=== PATIENT | male | born 1960 | race Two or more races ===

== ENCOUNTER 2019-09-23 06:02 | Day surgery (SDC) | payer BC ==
[2019-09-23] MEDS ORDERED: ePHEDrine SULFATE 50 MG/1 ML IVP ONE (08:48)
[2019-09-23] MEDS ORDERED: PROPOFOL 200 MG/20 ML VIAL IV ONE (08:48)
[2019-09-23] MEDS ORDERED: SEVOFLURANE 250 ML LIQUID IH ONE (08:48)
[2019-09-23] MEDS ORDERED: ROCURONIUM BROMIDE 10 MG/ML 5ML VIAL ONE (08:48)
[2019-09-23] MEDS ORDERED: DEXAMETHASONE SODIUM PHOSPHATE 10 MG/ML VIAL ONE (08:48)
[2019-09-23] MEDS ORDERED: LACTATED RINGERS 1,000 ML IV.SOLN IV ONE ×2 (08:48)
[2019-09-23] MEDS ORDERED: SUGAMMADEX SODIUM 200 MG/2 ML VIAL IV ONE (08:48)
[2019-09-23] MEDS ORDERED: THROMBIN (RECOMBINANT) 20,000 UNIT VIAL TP ONE (08:48)
[2019-09-23] MEDS ORDERED: ONDANSETRON HCL/PF 4 MG/ 2ML VIAL ONE (08:48)
[2019-09-23] MEDS ORDERED: GELATIN SPONGE,ABSORB/PORCINE (SIZE 100) 1 EACH SPONGE TP ONE (08:48)
[2019-09-23] MEDS ORDERED: BACITRACIN 50,000 UNIT VIAL IR ONE (08:48)
[2019-09-23] MEDS ORDERED: MIDAZOLAM HCL 2 MG/2 ML VIAL ONE (08:48)
[2019-09-23] MEDS ORDERED: ceFAZolin SODIUM 1 GM VIAL ONE (08:48)
[2019-09-23] MEDS ORDERED: LIDOCAINE HCL 2% PF 100MG/5ML VIAL IJ ONE (08:48)
[2019-09-23] MEDS ORDERED: HYDROmorphone HCL/PF 1 MG/ML VIAL ONE (09:48)
[2019-09-23] MEDS ORDERED: fentaNYL CITRATE/PF 100 MCG/2 ML INJ. ONE (09:53)
[2019-09-24 08:46] VITALS: BP 117/76
--- NOTE | 2019-11-14 10:52 | Operative Note ---
PROCEDURE DATE: 09/23/2019 PREOPERATIVE DIAGNOSIS: 1. Herniated nucleus pulposus with central and bilateral foraminal stenosis, C5- 6. 2. Herniated nucleus pulposus with central and bilateral foraminal stenosis, C6- 7. POSTOPERATIVE DIAGNOSIS: 1. Herniated nucleus pulposus with central and bilateral foraminal stenosis, C5- 6. 2. Herniated nucleus pulposus with central and bilateral foraminal stenosis, C6- 7. PROCEDURES PERFORMED: 1. Radical discectomy anteriorly, C5-6. 2. Radical discectomy anteriorly, C6-7. 3. Partial vertebrectomy for decompression of central and bilateral foraminal stenosis, posterior inferior aspect of the C5 vertebral body. 4. Partial vertebrectomy for decompression of central and bilateral foraminal stenosis, posterior superior aspect of the C6 vertebral body. 5. Partial vertebrectomy for decompression of central and bilateral foraminal stenosis, posterior inferior aspect of the C6 vertebral body. 6. Partial vertebrectomy for decompression of central and bilateral foraminal stenosis, posterior superior aspect of the C7 vertebral body. 7. Placement of cervical total disc replacement arthroplasty at the C5-6 level. 8. Placement of cervical total disc replacement arthroplasty at the C6-7 level. 9. Intraoperative fluoroscopy and interpretation for needle placement. SURGEON: Hemant Zepeda Jr., M.D. HOUSE MOVER HELPER: SARA Hi BC ANESTHESIA: General. COMPLICATIONS: None. CONDITION TO THE RECOVERY ROOM: Good. OPERATIVE FINDINGS: This patient had a large herniated nucleus pulposus and osteophyte formation resulting in central and bilateral foraminal stenosis from which he was symptomatic and unresponsive to conservative management at C5-6 and C6-7. The patient was counseled regarding options and elected to proceed with cervical total disc replacement arthroplasty at C5-6 and C6-7, which was carried out today with good alignment and positioning of the total disc replacements. Central and bilateral foraminal stenosis was relieved by judicious partial vertebrectomy at each level until nerve hook documented relief of the central and bilateral foraminal stenosis. DESCRIPTION OF PROCEDURE: The patient was taken to the operating room and intravenous antibiotics administered. The neck was shaved to the degree necessary. Steri-Drapes were applied at the intended surgical site edges. The surgical site was then scrubbed and prepped to sterility. Sterile draping then occurred. X-ray was brought into position and a radiographic marker was placed identifying the extended center line of the disc for intended surgical care. Beginning at the midline, a transverse surgical incision was made extending to the left approximately 2 cm. Once the epidermis was penetrated, the dermis was incised with electrocautery. Dissection through the subcutaneous tissue with Metzenbaum scissors and digitally was performed down until the interval between the trachea and the carotid triangle and the esophagus was clearly established down to the Longus colli muscles on the left side of the anterior cervical spine at the C5-6 level. Gentle retraction of the trachea and esophagus occurred to the right side while Kittner retractors were used to bluntly open the prevertebral fascia and reveal the annulus. Into the annulus was placed a safety needle and all retractors were removed and x-rays taken to confirm midline placement of the needle, and that the correct anatomic level was still identified. Electrocautery was then used to elevate the Longus colli muscles after [facility] Retractor blades were replaced. The needle had been removed. The Machine Operator Slitter Technician tined retractor blades of the appropriate length were then inserted under the Longus colli muscles and retracted to reveal the anterior disc space sufficiently from left to right. The annulus was then incised with a #15 blade scalpel and removed. Pituitary rongeurs were then used to begin to evacuate the disc material. Whitefish pins were then inserted into the midportion of the vertebral body anteriorly above and below the affected disc. Whitefish retractor was then placed and distraction began. This allowed larger pituitary rongeurs to be inserted and all disc material was removed back to the impinging posterior osteophytes. A curette was then used and the endplates were curettaged until all cartilaginous material was removed, exposing bleeding bone. A smaller curette was then used to penetrate the posterior osteophyte all the way down to the removal of a portion of the posterior longitudinal ligament revealing the dura. Once the dura was visualized, a combination of 1- and 2-mm Kerrison rongeurs were inserted beneath the posterior longitudinal ligament and resection began of the posterior longitudinal ligament and associated osteophytes and bone spurs emanating posteriorly causing the posterior and lateral recess stenosis. Once the osteophytes had been resected to sufficiency as documented radiographically and laterally as documented by using a nerve hook to prove complete decompression, Gelfoam was used as necessary to control hemostasis. The appropriate implant sizing tools were then used to establish the appropriate width, depth, and height for implant placement. Any osteophytes anteriorly necessary to remove were then also removed with a Kerrison rongeur to allow access and placement of the implant. The cervical total disc replacement implant of the appropriate size was then affixed to the carrier and impacted into the midline position as determined radiographically. The lateral C-arm fluoroscopy visualization was then used to drive the implant to the desired depth as determined radiographically. The device for removing the implant insertion tool was used and the implant insertion tool was removed. The implant carrier was then grasped in the appropriate tool, loosened and removed, leaving the implant in place. For the purpose of this portion of the process, the Whitefish retractor was placed into a compression mode to securely hold on to the implant while the insertion tools were removed. Following this, irrigation was carried out. The retractor was then removed and the wound examined for hemostasis, which was confirmed to be present. The Whitefish pins had been removed and bone wax placed in the vertebral body holes left by the Whitefish pin insertion to achieve hemostasis. A 3-0 Vicryl suture approximated the subcutaneous tissue. A 5-0 Vicryl then approximated the subcuticular tissue. Dermabond then approximated the epidermis. A sterile dressing was applied and the patient was taken to the recovery room in good condition where normal motor and sensory examination was confirmed to be present. After completing the procedure at the C5-6 level initially, the retractors were withdrawn and replaced at the C6-7 level in order to allow access. The identical procedure as described was then carried out at the C6-7 level, terminating with irrigation and closure of the wound and application of a dressing and cervical collar. The patient was then taken to the recovery room where good motor and sensory examination was confirmed to be present. HEMANT ZEPEDA JR., M.D. GRETEL/dayana (Please copy [facility] provider when applicable) Job #[id number] BRIANNA
== END 2019-09-23 10:24 ==
LOC: OPSURG 06:02
PROVIDERS: ATTEND Orthopaedic Surgery
DX: M48.02 Spinal stenosis, cervical region (principal); M50.223 Other cervical disc displacement at C6-C7 level; M50.222 Other cervical disc displacement at C5-C6 level; M25.78 Osteophyte, vertebrae
CPT/HCPCS: 22856; 22858; J0690; J1170; J2001; J2250; J2405; J2704; J3010; J3490; J7120

== ENCOUNTER 2019-09-23 10:25 | Observation (INO) | payer BC ==
[2019-09-23 10:46] VITALS: BMI 23.9
--- NOTE | 2019-09-23 12:06 | History and Physical Report ---
History of Present Illnes - History of Present Illness Reason for Visit: Chronic neck pain/TDR C5-7 History of Present Illness: This is a 58 year old male wo presented to Dr. Dozier's clinic with chronic neck pain and failed conservative treatment. He was taken to the OR today, and had TDR at C5-7. His record denotes no complications in the OR. He is admitted for ambulation and pain control. 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: Other (seizure) Gastrointestinal: GERD, Other (pancreatitis) Psych: Depression Musculoskeletal: Osteoarthritis Endocrine: Hypothyroidism - Past Surgical History Past Surgical History: Other (Colon resection) - Past Social History Smoke: Quit Alcohol: Heavy Drugs: None Lives: With Family Domestic Violence: Negative - Health Maintenance Health Maintenance: Cholesterol, Influenza Vaccine, Pneumococcal Vaccine Influenza Vaccine: Current for this Influenza Season, Anaphylactic Latex Allergy Pneumonia Vaccine: Yes Resuscitation Status: Resusciation Status Resuscitation Status Full Code - Unable to Obtain History Unable to Obtain: No Review of Systems - Review of Systems Constitutional: negative: Fever, Chills Eyes: negative: pain ENT: negative: Ear Pain Respiratory: negative: Cough, Dry Cardiovascular: negative: Chest Pain Gastrointestinal: negative: Nausea, Vomiting Genitourinary: negative: Dysuria Musculoskeletal: Neck Pain Skin: negative: Rash Neurological: negative: Weakness, Numbness - Medications/Allergies Allergies/Adverse Reactions: Allergies Allergy/AdvReac Type Severity Reaction Status Date / Time No Known Allergies Allergy Verified 09/23/19 11:00 Home Medications: Home Medications Diclofenac Sodium 1 appl TOP QID 09/23/19 Gabapentin [Neurontin] 600 mg PO DAILY 09/23/19 Levothyroxine Sodium 25 mcg PO 0700 09/23/19 Metaxalone 100 mg PO DAILY 09/23/19 Pantoprazole Sodium 100 mg PO BID 09/23/19 amLODIPine BESYLATE [Norvasc] 5 mg PO DAILY 09/23/19 buPROPion [Wellbutrin Sr (12 Hour)] 300 mg PO DAILY 09/23/19 Exam - Exam Vital Signs: Vital Signs (72 hours) 09/23/19 09/23/19 09/23/19 10:39 10:41 11:00 Temperature 97.8 F 97.8 F 96.4 F L Pulse Rate [ 93 H 93 H 84 Right Pulse ox] Respiratory 20 20 18 Rate Blood Pressure 149/67 149/67 134/85 [Right Arm] O2 Sat by Pulse 92 92 91 L Oximetry General: Alert, Oriented to Person, Oriented to Place, Oriented to Time HEENT: Atraumatic, PERRLA, EOMI Neck: Stridor, Rigidity, Other (Incision on left side of neck is dry and dressed.) Lungs: Clear to auscultation, Normal air movement, Speaks full Sentences. No: Respiratory Distress Cardiovascular: Regular rate, Normal S1, Normal S2 Murmur: No: Systolic Murmur, Diastolic Murmur Abdomen: Normal bowel sounds, Soft, No tenderness, No hepatospenomegaly Genitourinary: No: Other Male Genitourinary: No: Other Female Genitourinary: No: Other Integumentary: Normal, Warm Extremities: No clubbing, No cyanosis, No edema Neurological: Normal speech, Strength Equal Bilat Psych/Mental Status: Mental status NL Assessment/Plan - Assessment/Plan (1) Chronic neck pain Status: Acute Current Visit: Yes Narrative Support Text: S/P TDR C5-7 Plan: Ambulate, pain medications VTE Assessment - RISK FACTOR SCORE VTE RISK FACTOR SCORES: AGE 40-60 YEARS, ANTICIPATED BED CONFINEMENT OR IMMOBILIZATION > 24 HOURS - RISK VTE MODERATE RISK: SCORE OF 2 (RISK PROXIMAL DVT 2-4%) PROPHYAXIS NEEDED
[2019-09-23] MEDS ORDERED: ONDANSETRON HCL/PF 4 MG/ 2ML VIAL IVP PRN (12:49)
[2019-09-23] MEDS ORDERED: oxyCODONE/ACETAMINOPHEN 5/325 TABLET PO PRN (12:49)
[2019-09-23] MEDS: MORPHINE SULFATE 4 MG/ML VIAL IVP PRN ×4 (13:02→21:43)
[2019-09-23] MEDS: oxyCODONE/ACETAMINOPHEN 5/325 TABLET PO PRN (15:20)
[2019-09-23] MEDS ORDERED: MORPHINE SULFATE 2 MG/ML VIAL ONE ×2 (17:20→17:26)
[2019-09-23] MEDS ORDERED: ZOLPIDEM TARTRATE 5 MG TABLET PO PRN (20:20)
[2019-09-23] MEDS: HEPARIN SODIUM 5000 UNIT/1 ML SQ SCH ×2 (21:40→23:02)
[2019-09-23] MEDS: PANTOPRAZOLE SODIUM 40 MG TABLET.DR PO SCH ×2 (21:46→23:01)
[2019-09-24] MEDS: MORPHINE SULFATE 4 MG/ML VIAL IVP PRN ×2 (00:16→08:11)
[2019-09-24] MEDS: oxyCODONE/ACETAMINOPHEN 5/325 TABLET PO PRN ×2 (03:00→11:02)
[2019-09-24] MEDS: PANTOPRAZOLE SODIUM 40 MG TABLET.DR PO SCH (06:31)
[2019-09-24] MEDS ORDERED: LEVOTHYROXINE SODIUM 50 MCG TABLET PEG SCH (07:00)
[2019-09-24] MEDS: HEPARIN SODIUM 5000 UNIT/1 ML SQ SCH (08:10)
[2019-09-24] MEDS: METAXALONE PO SCH (08:45)
[2019-09-24 08:46] VITALS: BP 117/76
[2019-09-24] MEDS ORDERED: amLODIPine BESYLATE 5 MG TABLET PO SCH (09:00)
[2019-09-24] MEDS ORDERED: buPROPion 150 MG TAB.ER.12H PO SCH (09:00)
--- NOTE | 2019-09-24 09:51 | Discharge Summary ---
Discharge Summary - Discharge [facility] Admission Date: 09/23/19 Discharge Date: 09/24/19 History of Present Illness: 58 year old male admitted with c/o chronic neck pain, not responsive to conservative measures. He was taken to the OR by Dr. Dozier on the day of admission for TDR at C4-5, C5-6. Condition at Discharge: Stable Home Medications: Ambulatory Orders Medication Instructions Recorded Diclofenac Sodium 1 appl TOP QID 09/23/19 Gabapentin [Neurontin] 600 mg PO DAILY 09/23/19 Levothyroxine Sodium 25 mcg PO 0700 09/23/19 Metaxalone 100 mg PO DAILY 09/23/19 Pantoprazole Sodium 100 mg PO BID 09/23/19 amLODIPine BESYLATE [Norvasc] 5 mg PO DAILY 09/23/19 buPROPion [Wellbutrin Sr (12 Hour)] 300 mg PO DAILY 09/23/19 Consultations this Visit: Other (Hospitalist service, PT) Procedures this Visit: Other (TDR C4-5, C5-6) Allergies/Adverse Reactions: Allergies Allergy/AdvReac Type Severity Reaction Status Date / Time No Known Allergies Allergy Verified 09/24/19 08:56 Patient Problems: Current Active Problems Problem Status Onset Chronic neck pain Acute Discharge Summary: Discharged to home with resumption of his regular medications with the addition of Robaxin 500 mg TID prn pain and percocet 7.5/325 102 po q 4-[address] hours[address] Follow up with Dr. Dozier as scheduled. Hospital Course: Postoperative course was unremarkable. He was able to ambulate well, and his pain was well controlled.
== END 2019-09-24 11:00 | disposition home or self-care (01) ==
LOC: SOUTH 10:25
PROVIDERS: ADMIT Family Medicine; ATTEND Family Medicine
DX: G89.29 Other chronic pain (principal); M54.2 Cervicalgia
CPT/HCPCS: 99218; 99282; 99283; J1644; J2270; A9270-GY; G0378; G0379